=== PATIENT | male | born 1995 | race American Indian/Alaskan Native ===

== ENCOUNTER 2016-08-11 16:17 | Emergency (ER) | payer OTHER ==
[2016-08-11] MEDS ORDERED: BOOSTRIX IM ONE (20:10)
[2016-08-11] MEDS ORDERED: NACL 0.9% IR ONE (20:10)
[2016-08-11] MEDS ORDERED: XYLOCAINE 1% 20 mL INFILTRATI ONE (20:10)
--- NOTE | 2016-08-11 20:26 | Emergency Department Report ---
Upper Extremity - [facility] Chief Complaint: Extremity Injury, Upper Stated Complaint: RT MIDDLE FINGER LACERATION Time Seen by Provider: 08/11/16 20:04 Upper Extremity: Right Middle Finger Occurred When: Today Symptoms: Yes Pain with Movement, Yes Limited Range of Movement, Yes Swelling, Yes Laceration or Abrasion Other History: Patient comes in the ER today with complaints of right finger pain after shutting his finger in a door earlier today. Patient states this happened approximately 1:30 this afternoon. Patient states that he had to jerk his finger out of the door when it shot. Patient is unsure as to when his last tetanus shot was. ED Review of Systems ROS: Stated complaint: RT MIDDLE FINGER LACERATION Other details as noted in HPI Constitutional: denies: chills, fever Eyes: denies: eye pain, eye discharge, vision change ENT: denies: ear pain, throat pain Respiratory: denies: cough, shortness of breath, wheezing Cardiovascular: denies: chest pain, palpitations Endocrine: no symptoms reported Gastrointestinal: denies: abdominal pain, nausea, diarrhea Genitourinary: denies: urgency, dysuria Musculoskeletal: joint swelling, arthralgia. denies: back pain Skin: denies: rash, lesions Neurological: denies: headache, weakness, paresthesias Psychiatric: denies: anxiety, depression Hematological/Lymphatic: denies: easy bleeding, easy bruising ED Past Medical Hx - Past Medical History Previous Medical History?: No - Surgical History Past Surgical History?: No - Social History Smoking Status: Never Smoker Substance Use Type: None - Medications Home Medications: Home Medications Medication Instructions Recorded Confirmed Last Taken Type Acetaminophen/Codeine [Tylenol 1 tab PO Q6H PRN #20 tab 08/11/16 Unknown Rx /Codeine # 3 tab] Cephalexin [Keflex] 500 mg PO QID #40 capsule 08/11/16 Unknown Rx Upper Extremity Exam - Exam General: Vital signs noted. No distress. Alert and acting appropriately. Head and Torso: No HEENT Abnormality, No Neck Tenderness, No Chest/Lungs Abnormality, No Abdominal Tenderness, No Back Tenderness Shoulder Exam: Yes Normal Range of Motion in Shoulder, No Shoulder Tenderness, No Clavicle Tenderness, No Shoulder Deformity, No AC Joint Tenderness Arm Exam: No Arm/Humerus Tenderness, No Arm Deformity Elbow: No Elbow Tenderness, No Normal Range of Motion in Elbow, No Elbow Deformity Forearm: No Forearm Tenderness, No Forearm Deformity, No Pain with Pronation, No Pain with Supination Wrist: Yes Normal ROM in Wrist, No Wrist Tenderness, No Wrist Deformity, No Snuffbox Tenderness, No Pain with Axial Thumb Compression Hand: Yes Digit Tenderness (right third finger distal flap laceration through the bone.), No Hand Tenderness, No Hand Deformity, No Normal ROM in Digit(s), No Digit(s) Deformity, No Tendon Dysfunction CMS Exam: No Broken Skin, No Normal Distal Pulses, No Normal Capillary Refill, No Normal Distal Sensation ED Course Vital Signs 08/11/16 16:32 Temperature 98.8 F Pulse Rate 89 Respiratory 20 Rate Blood Pressure 112/78 - Laceration /Wound Repair Right Distal Finger Wound Location: upper extremity (right distal third finger) Wound's Depth, Shape: flap (multilayer flap laceration through the bone of distal right third finger) Wound Explored: no foreign body removed Irrigated w/ Saline (ccs): 60 Betadine Prep?: Yes Anesthesia: 1% Lidocaine Volume Anesthetic (ccs): 3 Wound Repaired With: sutures Suture Size/Type: 4:0, nylon Number of Sutures: 5 Layer Closure?: No Sterile Dressing Applied?: Yes Progress: Digital block performed on the right third finger. Patient tolerated procedure fairly well. There were no complications or difficulties. After good anesthesia was obtained, 5 intermittent sutures placed in and of right third finger with 3 sutures through the actual nail itself. Good closure obtained. Patient placed in finger splint for the fracture after wound closure and bandage. ED Medical Decision Making - Radiology Data Radiology results: image reviewed interpreted by me: Distal right third phalanx finger fracture - Medical Decision Making Patient is nontoxic and hemodynamically stable. Patient tolerated procedure of wound repair here in the ER. Patient placed in a splint for fracture. Patient given an update to his tetanus immunization here in the ER. I will continue patient on some outpatient antibiotics as well as outpatient orthopedics for further evaluation for open finger fracture. Patient is in agreement with treatment plan the patient is stable for discharge. Critical care attestation.: If time is entered above; I have spent that time in minutes in the direct care of this critically ill patient, excluding procedure time. ED Disposition Clinical Impression: Open finger fracture, Finger pain Disposition: TO HOME OR SELFCARE Is pt being admited?: No Does the pt Need Aspirin: No Condition: Good Instructions: Suture Care (ED), Laceration (ED), Finger Fracture (ED), Finger Laceration (ED) Prescriptions: Acetaminophen/Codeine [Tylenol /Codeine # 3 tab] 1 tab PO Q6H PRN #20 tab PRN Reason: Pain Cephalexin [Keflex] 500 mg PO QID #40 capsule Referrals: PRIMARY CARE, [Primary Care Provider] - 3-5 Days Time of Disposition: 22:18
--- NOTE | 2016-08-11 20:44 | XRay Report ---
FINAL REPORT EXAM: XR HAND 3 RT HISTORY: finger injury TECHNIQUE: Right hand three views PRIORS: None. FINDINGS: There acute avulsion type injury tip distal phalanx of the 3rd digit with fracture through the distal tuft. No radiopaque foreign bodies are observed. The joint spaces are within normal limits. No additional acute abnormality identified. IMPRESSION: Fracture through the tuft distal phalanx of the 3rd digit with laceration
[2016-08-11] MEDS ORDERED: NORCO 5/325 PO ONE (22:30)
[2016-08-11 22:48] VITALS: BP 109/77
== END 2016-08-11 22:47 | disposition home or self-care (01) ==
LOC: ED 16:17
DX: S62.632B Displaced fracture of distal phalanx of right middle finger, initial encounter for open fracture (principal); S61.212A Laceration without foreign body of right middle finger without damage to nail, initial encounter; W22.8XXA Striking against or struck by other objects, initial encounter; Y93.9 Activity, unspecified; Y92.9 Unspecified place or not applicable; Y99.9 Unspecified external cause status
CPT/HCPCS: 90471; 90715; 99283

== ENCOUNTER 2016-09-08 21:39 | Emergency (ER) | payer OTHER ==
[2016-09-08 22:29] VITALS: BP 103/69
[2016-09-08] MEDS ORDERED: MARCAINE 0.5% INFILTRATI NR (23:45)
[2016-09-08] MEDS ORDERED: TORADOL IM ONE (23:46)
--- NOTE | 2016-09-09 | Emergency Department Report ---
- General Chief Complaint: Wound/Laceration Stated Complaint: EYE INJURY Time Seen by Provider: 09/08/16 23:42 Source: patient Mode of arrival: Ambulatory Limitations: No Limitations - History of Present Illness Initial Comments: This is a 21-year-old male nontoxic, well nourished in appearance, no acute signs of distress that presents to the ED complaining of laceration to the left eyebrow. Patient stated he was playing basketball around 9 PM and was head butted by accidentally. Patient states bleeding is under control. Denies loss of consciousness. Denies other head trauma. Patient stated upon arrival he had a slight headache that is subsided now. Patient denies headache, blurry vision, chest pain, stiff neck, nausea, vomiting, eye pain, eye redness, visual changes, shortness of breath, nausea or vomiting. Patient last tetanus shot was last year when he had a laceration repair to the finger. Patient denies any allergies or significant past medical history. -: Gradual, This evening Location: other (left eyebrow) Place: outdoors Patient Tetanus UTD: Yes Context: accidental Associated Symptoms: none. denies: pain, loss of feeling/numbness, suspect foreign body present, unable to move injured part, weakness followed by dizziness, nausea/vomiting, fever - Related Data Previous Rx's Medication Instructions Recorded Last Taken Type Acetaminophen/Codeine [Tylenol 1 tab PO Q6H PRN #20 tab 08/11/16 Unknown Rx /Codeine # 3 tab] Cephalexin [Keflex] 500 mg PO QID #40 capsule 08/11/16 Unknown Rx Cephalexin [Keflex] 500 mg PO Q8HR 5 Days 09/09/16 Unknown Rx Ibuprofen [Motrin 600 MG tab] 600 mg PO Q8H PRN #30 tablet 09/09/16 Unknown Rx Allergies Allergy/AdvReac Type Severity Reaction Status Date / Time No Known Allergies Allergy Verified 08/11/16 16:32 ED Review of Systems ROS: Stated complaint: EYE INJURY Other details as noted in HPI Constitutional: denies: chills, fever Eyes: denies: eye pain, eye discharge, vision change ENT: denies: ear pain, throat pain Respiratory: denies: cough, shortness of breath, wheezing Cardiovascular: denies: chest pain, palpitations Endocrine: no symptoms reported Gastrointestinal: denies: abdominal pain, nausea, diarrhea Genitourinary: denies: urgency, dysuria Musculoskeletal: denies: back pain, joint swelling, arthralgia Skin: denies: rash, lesions Neurological: denies: headache, weakness, paresthesias Psychiatric: denies: anxiety, depression Hematological/Lymphatic: denies: easy bleeding, easy bruising ED Past Medical Hx - Past Medical History Previous Medical History?: No - Surgical History Past Surgical History?: No - Social History Smoking Status: Never Smoker Substance Use Type: Prescribed - Medications Home Medications: Home Medications Medication Instructions Recorded Confirmed Last Taken Type Acetaminophen/Codeine [Tylenol 1 tab PO Q6H PRN #20 tab 08/11/16 Unknown Rx /Codeine # 3 tab] Cephalexin [Keflex] 500 mg PO QID #40 capsule 08/11/16 Unknown Rx Cephalexin [Keflex] 500 mg PO Q8HR 5 Days 09/09/16 Unknown Rx Ibuprofen [Motrin 600 MG tab] 600 mg PO Q8H PRN #30 tablet 09/09/16 Unknown Rx ED Physical Exam - General Limitations: No Limitations General appearance: alert, in no apparent distress - Head Head exam: Present: atraumatic, normocephalic, normal inspection - Eye Eye exam: Present: normal appearance, PERRL, EOMI. Absent: scleral icterus, conjunctival injection, nystagmus, periorbital swelling, periorbital tenderness - ENT ENT exam: Present: normal exam, normal orophraynx, mucous membranes moist, TM's normal bilaterally, normal external ear exam - Neck Neck exam: Present: normal inspection, full ROM. Absent: tenderness, meningismus, lymphadenopathy, thyromegaly - Respiratory Respiratory exam: Present: normal lung sounds bilaterally. Absent: respiratory distress, wheezes, rales, rhonchi, stridor, chest wall tenderness, accessory muscle use, decreased breath sounds, prolonged expiratory - Cardiovascular Cardiovascular Exam: Present: regular rate, normal rhythm, normal heart sounds. Absent: bradycardia, tachycardia, irregular rhythm, systolic murmur, diastolic murmur, rubs, gallop - GI/Abdominal GI/Abdominal exam: Present: soft, normal bowel sounds. Absent: distended, tenderness, guarding, rebound, rigid, diminished bowel sounds - Rectal Rectal exam: Present: deferred - Extremities Exam Extremities exam: Present: normal inspection, full ROM, normal capillary refill. Absent: tenderness, pedal edema, joint swelling, calf tenderness - Back Exam Back exam: Present: normal inspection, full ROM. Absent: tenderness, CVA tenderness (R), CVA tenderness (L), muscle spasm, paraspinal tenderness, vertebral tenderness, rash noted - Neurological Exam Neurological exam: Present: alert, oriented X3, CN II-XII intact, normal gait, reflexes normal - Expanded Neurological Exam Expanded Patient oriented to: Present: person, place, time Speech: Present: fluid speech (normal speech) Cranial nerves: EOM's Intact: Normal, Gag Reflex: Normal, Tongue Deviation: Normal, Nystagmus: Normal, Facial Sensation: Normal, Facial Palsy with Forehead Movement: Normal, Facial Palsy without Forehead Movement: Normal Cerebellar function: Finger to Nose: Normal, Heel to Jenkins: Normal, Romberg: Normal Upper motor neuron: Nick Neglect: Normal, Pronator Drift: Normal, Babinski Sign : Normal, Sensory Extinction: Normal Sensory exam: Upper Extremity Light Touch: Normal, Upper Extremity Pin Prick: Normal, Upper Extremity Temperature: Normal, UE 2 Point Discrimination: Normal, Lower Extremity Light Touch: Normal, Lower Extremity Pin Prick: Normal, Lower Extremity Temperature: Normal, LE 2 Point Discrimination: Normal Motor strength exam: RUE: 5, LUE: 5, RLE: 5, LLE: 5 DTR: bicep (R): 2+, bicep (L): 2+, tricep (R): 2+, tricep (L): 2+, knee (R): 2+ , knee (L): 2+, ankle (R): 2+, ankle (L): 2+ Best Eye Response (Lisa): (4) open spontaneously Best Motor Response (Lisa): (6) obeys commands Best Verbal Response ([place]): (5) oriented Lisa Total: 15 - Psychiatric Psychiatric exam: Present: normal affect, normal mood - Skin Skin exam: Present: warm, dry, intact, normal color. Absent: rash - Other Other exam information: 1 cm superficial linear laceration to the left eyebrow. No pus or drainage noted. No swelling. Patient denies any pain. ED Course Vital Signs 09/08/16 22:25 Temperature 99 F Pulse Rate 78 Respiratory 18 Rate Blood Pressure 103/69 Blood Pressure 106/69 [Right] O2 Sat by Pulse 98 Oximetry - Reevaluation(s) Reevaluation #1: 09/08/16 23:57 Patient is able speak in full sentences but no signs of distress noted. - Laceration /Wound Repair Left Face Wound Location: face (left eyebrow) Wound Length (cm): 2 Wound's Depth, Shape: superficial Wound Explored: clean Irrigated w/ Saline (ccs): 20 Betadine Prep?: Yes Anesthesia: 0.5% Sensorcaine (plain) Volume Anesthetic (ccs): 3 Wound Debrided: minimal Wound Repaired With: sutures Suture Size/Type: 5:0 Number of Sutures: 5 Layer Closure?: No Sterile Dressing Applied?: Yes Progress: Under sterile field, I used Betadine to clean the area. I then used 10 mL of normal saline to flush the area. I then used 0.5% Marcaine plain with 25-gauge 5/8 hypo-and injected a total volume of 3 mL. I then used a 5-0 Prolene to suture the laceration. Number of stitches 5. I then applied a sterile 4 x 4 with tape. Minimal bleeding noted but is under control. Patient tolerated procedure well with no signs of distress. ED Medical Decision Making - Medical Decision Making ED course; this is a [age] male that presents with 1 inch laceration to the left eyebrow. 1- patient was examined by myself. Laceration has been repaired and patient was instructed to return in 7 days for suture removal. 2- patient was discharged with Keflex and was instructed to finish full course of antibiotic. 3- patient was also instructed to follow-up with her primary care doctor in 3-5 days or if symptoms such as fever, chills, pus, drainage, swelling, stiffness, headache short of breath or chest pain return to emergency room as soon as possible. 4- At time time of discharge, the patient does not seem toxic or ill in appearance. No acute signs of distress noted. Patient agrees to discharge treatment plan of care. No further questions noted by the patient. Critical care attestation.: If time is entered above; I have spent that time in minutes in the direct care of this critically ill patient, excluding procedure time. ED Disposition Clinical Impression: Laceration Disposition: DC-01 TO HOME OR SELFCARE Is pt being admited?: No Does the pt Need Aspirin: No Condition: Stable Instructions: Cephalexin (By mouth), Ibuprofen (By mouth), Suture Care (ED), Laceration (ED) Additional Instructions: follow-up with your primary care doctor in 3-5 days or if symptoms such as fever, chills, pus, drainage, swelling, stiffness, headache short of breath or chest pain return to emergency room as soon as possible. Finish full course of antibiotics and was prescribed today. Prescriptions: Cephalexin [Keflex] 500 mg PO Q8HR 5 Days Ibuprofen [Motrin 600 MG tab] 600 mg PO Q8H PRN #30 tablet PRN Reason: Pain Referrals: PRIMARY CARE, [Primary Care Provider] - 3-5 Days ERIKA HELLER MD [Staff Physician] - 3-5 Days [facility] [Outside] - 3-5 Days [facility] [place] [facility] [place]] - 3-5 Days Forms: Work/School Release Form(ED)
== END 2016-09-09 01:40 | disposition home or self-care (01) ==
LOC: ED 21:39
DX: S01.112A Laceration without foreign body of left eyelid and periocular area, initial encounter (principal); W21.05XA Struck by basketball, initial encounter; Y93.9 Activity, unspecified; Y92.9 Unspecified place or not applicable; Y99.9 Unspecified external cause status
CPT/HCPCS: 12011; 99282; J1885

== ENCOUNTER 2016-09-12 22:56 | Emergency (ER) | payer OTHER ==
--- NOTE | 2016-09-12 23:38 | Emergency Department Report ---
HPI - General Time Seen by Provider: 09/12/16 23:23 - HPI HPI: The patient is a 20-year-old male who presents for evaluation of mental health. The patient reports 1 day of severe and constant sadness, improved with rest. He reported associated suicidal ideation as well. The patient denies fever, headache, unexplained weight loss or weight gain, heat or cold intolerance, skin , hair, or nail changes, neuro deficits, homicidal ideations, or auditory or visual hallucinations. ED Past Medical Hx - Social History Smoking Status: Never Smoker Substance Use Type: Prescribed - Medications Home Medications: Home Medications Medication Instructions Recorded Confirmed Last Taken Type Acetaminophen/Codeine [Tylenol 1 tab PO Q6H PRN #20 tab 08/11/16 Unknown Rx /Codeine # 3 tab] Cephalexin [Keflex] 500 mg PO QID #40 capsule 08/11/16 Unknown Rx Cephalexin [Keflex] 500 mg PO Q8HR 5 Days 09/09/16 Unknown Rx Ibuprofen [Motrin 600 MG tab] 600 mg PO Q8H PRN #30 tablet 09/09/16 Unknown Rx ED Review of Systems ROS: Stated complaint: MH EVAL/SUICIDAL THREATS Other details as noted in HPI Constitutional: denies: fever ENT: denies: throat or neck pain Respiratory: denies: cough, shortness of breath Cardiovascular: denies: chest pain Endocrine: denies unexplained weight loss or gain Gastrointestinal: denies: abdominal pain, nausea Genitourinary: denies: dysuria Musculoskeletal: denies: leg swelling Skin: denies: rash Neurological: denies: headache Hematological/Lymphatic: denies: easy bleeding or easy bruising Psych: reports sadness and hopelessness Physical Exam - Physical Exam Vital Signs: Blood pressure 117/64, heart rate 84, respiratory rate 18, temperature 98.7, oxygen saturation 99% Physical Exam: General: well-nourished, well-developed, no acute distress Head: Normocephalic, atraumatic Eyes: normal sclera ENT: Mucous membranes are pink and moist Neck: trachea midline, neck supple, No neck stiffness, no cervical adenopathy Respiratory: Breath sounds equal bilaterally, no wheezing, rales, or rhonchi Cardio: S1 and S2 present, no murmurs, rubs, gallops, capillary refill is brisk Abdomen: Normoactive bowel sounds, soft abdomen, no rigidity, no guarding or rebound tenderness Musc: No pitting edema Skin: No rash Neuro: no facial drooping, normal speech Psych: Flat affect, poor insight, depressed mood, positive suicidal ideation ED Medical Decision Making - Lab Data Result diagrams: 09/13/16 00:09 09/13/16 00:09 - Medical Decision Making The patient was seen and examined by myself. The patient is placed on a electrotherapist and continuous pulse ox. On initial evaluation, the patient was found to be in no distress. Labs are obtained. Lab results are grossly unremarkable. The patient is medically clear. Mental health is consulted. Mental health evaluates the patient and agrees that the patient is at risk of harm to self. A 1013 is completed. The patient will be admitted to a psychiatric facility once bed placement is obtained. Critical care attestation.: If time is entered above; I have spent that time in minutes in the direct care of this critically ill patient, excluding procedure time. ED Disposition Clinical Impression: Suicidal ideation Depression Qualifiers: Depression Type: major depressive disorder Major depression recurrence: single episode Active/Remission status: currently active Major depression episode severity: severe Psychotic features: without psychotic features Qualified Code(s ): F32.2 - Major depressive disorder, single episode, severe without psychotic features Disposition: DC/TX-65 PSY HOSP/PSY UNIT Is pt being admited?: No Does the pt Need Aspirin: No Condition: Serious Time of Disposition: 23:47
[2016-09-13 00:58] LABS: Anion Gap 20 mmol/L; BUN/Creatinine Ratio 6.36; Blood Urea Nitrogen 7 mg/dL (9-20); Calcium 9.3 mg/dL (8.4-10.2); Carbon Dioxide 24 mmol/L (22-30); Chloride 101.6 mmol/L (98-107); Glucose 97 mg/dL (75-100); Sodium 142 mmol/L (137-145)
[2016-09-13 01:02] LABS: Basophils % (Auto) 0.4 % (0.0-1.8); Eosinophils % (Auto) 0.6 % (0.0-4.3); Hematocrit 45.3 % (35.5-45.6); Hemoglobin 14.9 gm/dl (11.8-15.2); Mean Corpuscular HGB Conc 33 % (32-34); Mean Corpuscular Hemoglobin 28 pg (28-32); Mean Corpuscular Volume 84 fl (84-94); Platelet Count 255 K/mm3 (140-440); Red Blood Count 5.37 M/mm3 (3.65-5.03); White Blood Count 5.5 K/mm3 (4.5-11.0)
[2016-09-13 01:05] LABS: Urine Drugs of Abuse Note Disclamer
[2016-09-13 01:28] LABS: Bilirubin,Urine NEG (Negative); Blood,Urine NEG (Negative); Ketones,Urine NEG (Negative); Leukocyte Esterase,Urine SM (Negative); Mucus,Urine FEW /HPF; Nitrite,Urine NEG (Negative)
[2016-09-13] MEDS ORDERED: ROCEPHIN IM ONE (08:01)
[2016-09-13] MEDS ORDERED: ZITHROMAX PO ONE (08:01)
[2016-09-13] MEDS ORDERED: XYLOCAINE 1% MPF 5 mL INFILTRATI ONE (08:01)
--- NOTE | 2016-09-13 08:02 | Emergency Department Report ---
Blank Doc - Documentation Documentation: Nurse brought to my attention the patient's UA had signs of infection. Patient has rater than 182 WBC cells. Given age of 20yo Rocephin and azithromycin order to cover for STD related urethritis. Urine gonorrhea chlamydia culture test ordered.
--- NOTE | 2016-09-13 14:02 | Consultation ---
History of Present Illness - Reason for Consult Consult date: 09/13/16 Reason for consult: Mental Health Evaluation Requesting physician: SUAD THOMPSON - Chief Complaint Chief complaint: "I just made a gesture" - History of Present Psychiatric Illness The patient is a 20-year-old male who presents for evaluation of mental health. Today patient is calm and cooperative during the assessment. He stated he got into an argument with his girlfriend which prompted him to make a statement about being suicidal. Prior to this episode, patient had moved out from his mother and now live with a friend. He stated that his mother want him to move back home, something he doesn't want to do. Per the argument with his girlfriend , he called his mother and told her what happened and she asked him to move back home. Per the patient, he stated that he wanted to kill himself while talking with his mother. He stated that he made that statement to his mother so she can stop asking him to move back home. Per his mother Ms Maura Treviño, she confirmed that her son did tell her he wanted to kill himself. She denies a mental health hx for her son. Currently, patient continue to state that he was never suicidal when he made that statement. He denies recreational drug use and alcohol consumption. Medications and Allergies Allergies Allergy/AdvReac Type Severity Reaction Status Date / Time No Known Allergies Allergy Verified 08/11/16 16:32 Home Medications Medication Instructions Recorded Confirmed Last Taken Type Acetaminophen/Codeine [Tylenol 1 tab PO Q6H PRN #20 tab 08/11/16 Unknown Rx /Codeine # 3 tab] Cephalexin [Keflex] 500 mg PO QID #40 capsule 08/11/16 Unknown Rx Cephalexin [Keflex] 500 mg PO Q8HR 5 Days 09/09/16 Unknown Rx Ibuprofen [Motrin 600 MG tab] 600 mg PO Q8H PRN #30 tablet 09/09/16 Unknown Rx Past psychiatric history - Past Medical History Past Medical History: No medical history Past Surgical History: No surgical history - past Psychiatric treatment and history psychiatric treatment history: Denies a psy hx. Mother - Depression. - Social History Social history: Lives alone (11th grade education) Mental Status Exam - Vital signs Last Vital Signs Temp 98.6 F 09/13/16 08:47 Pulse 53 L 09/13/16 08:47 Resp 18 08/01/17 08:47 BP 117/64 09/13/16 01:00 Pulse Ox 98 09/13/16 08:47 - Exam Narrative exam: ROS: (-) depression MSE: Appearance: calm, cooperative Behavior: regular eye contact Speech: regular rate and tone Mood: "okay" Affect: congruent to mood Thought Process: circumstantial Thought Content: denies SI/HI's and AVH's Motor Activity: ambulatory Cognition: A/Ox 3 Insight: fair Judgment: fair Results Result Diagrams: 09/13/16 00:09 09/13/16 00:09 Abnormal lab results 09/13/16 09/13/16 09/13/16 Range/Units 00:09 00:09 00:45 RBC 5.37 H (3.65-5.03) M/mm3 [place] % (Auto) 8.9 H (0.0-7.3) % BUN 7 L (9-20) mg/dL Urine pH 8.0 H (5.0-7.0) Urine WBC (Auto) 102.0 H (0.0-6.0) /HPF All other labs normal. Assessment and Plan Assessment and plan: Impression: Acute Stress Reaction. Today patient is calm and cooperative during the assessment. Patient denies SI's. DDx: R/O Mood DO Recommendation/Plan: Evaluate 1013 in 24 hours to determine proper dispo. Discussed generalized coping skills with patient.
--- NOTE | 2016-09-14 15:41 | Progress Note ---
Subjective - Reason for Consult Consult date: 09/14/16 Reason for consult: follow up - Chief Complaint Chief complaint: "I never said I was going to kill myself." 20 year old male seen for psychiatric follow up in the ER. He denies suicidal ideation or depression. He denies psychotic symptoms. His mother reports he texted her and his father and said he was going to kill himself at 10. She describes him as immature and frequently lies. She states about one month ago, he called her and told her he woke up and angry and wanted to kill himself. She states he mentioned his fear of being locked up in a hospital if he said how he felt. She stayed with him that day and did not have any further cause for concerns until the event leading to this ER visit. Mental Status Exam - Vital signs Last Vital Signs Temp 98.6 F 09/14/16 07:47 Pulse 65 09/14/16 07:47 Resp 18 09/14/16 07:47 BP 112/71 09/14/16 07:47 Pulse Ox 100 09/14/16 07:47 Assessment and Plan Narrative exam: ROS: (-) depression MSE: Appearance: calm, cooperative Behavior: regular eye contact Speech: regular rate and tone Mood: "okay" Affect: congruent to mood Thought Process: circumstantial Thought Content: denies SI/HI's and AVH's Motor Activity: ambulatory Cognition: A/Ox 3 Insight: fair Judgment: fair Assessment and plan: Impression: Acute Stress Reaction. Today patient is calm and cooperative during the assessment. Patient denies SI's but his report of the events leadin to the hospital stay is incocnsistent with his mother's reports. She also expressed that he texted her his intent to harm himself and lied about it. She states he lies often and wants him to live at home since he is immature. DDx: R/O Mood DO Recommendation/Plan: Evaluate 1013 in 24 hours to determine proper dispo. Discussed generalized coping skills with patient. His mother is willing to pick him up if he is discharged from the ER.
[2016-09-14 22:31] VITALS: BP 106/61
--- NOTE | 2016-09-15 10:51 | Progress Note ---
Subjective - Reason for Consult Consult date: 09/15/16 Reason for consult: Psychiatry Follow-up - Chief Complaint Chief complaint: "I don't want to kill myself" 20 year old male seen for psychiatric follow up in the ER. Today patient is calm and cooperative during assessment. He is adamant about not wanting to kill himself. He stated that he should have handled the situation better. He stated since his admission, he thought about how to make his life better. He stated that he would like to get his GED so he can get a better job and possible go to college. He denies SI/HI's, AVH's, and depression symptoms. Patient is willing to move back in with his mother once discharged. Mental Status Exam - Vital signs Last Vital Signs Temp 98.6 F 09/14/16 07:47 Pulse 62 09/14/16 22:30 Resp 17 09/15/16 10:04 BP 106/61 09/14/16 22:30 Pulse Ox 99 09/15/16 10:04 - Exam Narrative exam: MSE: Appearance: calm, cooperative Behavior: regular eye contact Speech: regular rate and tone Mood: "I'm well" Affect: congruent to mood Thought Process: circumstantial Thought Content: denies SI/HI's and AVH's Motor Activity: ambulatory Cognition: A/Ox 3 Insight: fair Judgment: fair Assessment and Plan Impression: Acute Stress Reaction. Today patient is calm and cooperative during the assessment. Patient denies SI's. Patient had support from his mother Maura Treviño. She stated that he can move in with her once he is discharged. Patient is no threat to self. Recommendation/Plan: Rescind 1013. Patient given outpatient psy services for the [facility] (therapy). Discussed generalized coping skills with patient.
== END 2016-09-15 19:02 ==
LOC: EEVIPCON 22:56 → ED 22:56
DX: F32.2 Major depressive disorder, single episode, severe without psychotic features (principal); R45.851 Suicidal ideations
CPT/HCPCS: 36415; 80048; 80307; 81001; 85025; 87591; 96372; 99285; G0480; J0696; 80320

== ENCOUNTER 2016-09-26 13:00 | Emergency (ER) | payer OTHER ==
[2016-09-26 13:15] VITALS: BP 103/70
--- NOTE | 2016-09-26 13:43 | Emergency Department Report ---
Suture/Staple Removal - HPI Chief Complaint: Laceration/Recheck/Suture Stated Complaint: SUTURE REMOVAL Time Seen by Provider: 09/26/16 13:38 When Sutures or Frederic Placed: R middle finger 1 month, L eyebrow 1 week Wound Location: R middle finger, L eye brow ED Review of Systems ROS: Stated complaint: SUTURE REMOVAL Other details as noted in HPI Comment: All other systems reviewed and negative Constitutional: denies: chills, fever Skin: as per HPI (5 stitches to R middle finger tip. left eye brow with 5 stitches ), other (denies drainage or redness ). denies: change in color ED Past Medical Hx - Past Medical History Previous Medical History?: No - Surgical History Past Surgical History?: No - Social History Smoking Status: Never Smoker Substance Use Type: Prescribed - Medications Home Medications: Home Medications Medication Instructions Recorded Confirmed Last Taken Type Ibuprofen [Motrin] 600 mg PO Q8H PRN #15 tablet 09/26/16 Unknown Rx Sulfamethoxazole/Trimethoprim 1 each PO BID #14 tablet 09/26/16 Unknown Rx [Bactrim DS TAB] Suture Removal Exam - Exam General: Vital signs noted. No distress. Alert and acting appropriately. Wound: Yes Pathologic Erythema (r middle finger ), Yes Tenderness (r middle finger ), Yes Drainage (r middle finger ), Yes Pus (r middle finger ), No Wound Dehiscence Other Systems: All other systems reviewed and are unremarkable. ED Course Vital Signs 09/26/16 13:13 Temperature 98.2 F Pulse Rate 78 Respiratory 16 Rate Blood Pressure 103/70 O2 Sat by Pulse 100 Oximetry - Reevaluation(s) Reevaluation #1: 09/26/16 13:52 five sutures removed from R middle finger, + drainage, + tenderness. fiver sutures removed from L eye brow, wound remains intact. no signs of infection - Pulse Oximetry Interpretation Digit-Finger Initial Pulse Oximetry Readin Actions Taken: none ED Recheck MDM - Differential Diagnosis Suture/Staple Removal Critical Care Time: No Critical care attestation.: If time is entered above; I have spent that time in minutes in the direct care of this critically ill patient, excluding procedure time. ED Disposition Clinical Impression: Encounter for removal of sutures Disposition: DC-01 TO HOME OR SELFCARE Is pt being admited?: No Does the pt Need Aspirin: No Condition: Stable Instructions: Suture Removal (ED), Abscess (ED), Subungual Hematoma (ED) Additional Instructions: warm compresses to R middle finger at least 4 times a day Return to Ed in 2 days for recheck or follow up with PCP Return to ED if your finger swells, you can not move it, you have fever or worsening pain Prescriptions: Ibuprofen [Motrin] 600 mg PO Q8H PRN #15 tablet PRN Reason: Pain Sulfamethoxazole/Trimethoprim [Bactrim DS TAB] 1 each PO BID #14 tablet Referrals: ALESSIA FRIAS MD [Staff Physician] - 3-5 Days [facility] [Outside] - 3-5 Days Time of Disposition: 13:53
[2016-09-26] MEDS ORDERED: MORPHINE ONE (13:58)
== END 2016-09-26 14:06 | disposition home or self-care (01) ==
LOC: ED 13:00
DX: Z48.02 Encounter for removal of sutures (principal)
CPT/HCPCS: J2270

== ENCOUNTER 2019-03-03 17:51 | Emergency (ER) | payer SELFPAY ==
[2019-03-03 18:23] VITALS: BP 96/77
--- NOTE | 2019-03-03 18:23 | Emergency Department Report ---
ED Male HPI - General Chief complaint: Urogenital-Male Stated complaint: BLEEDING AND BURNING FROM PENIS Time Seen by Provider: 03/03/19 18:18 Source: patient Mode of arrival: Ambulatory Limitations: No Limitations - History of Present Illness Initial comments: This is a 23-year-old male nontoxic, well in appearance with no signs of distress presents to the ED for dysuria and some discharge x4 days. Denies any testicular pain, or swelling. Denies any penile ulcers or rash. Patient denies any urinary symptoms. Patient denies any fever, chills, headache, nausea, vomiting, chest pain or shortness of breathe. Denies any other symptoms or complaints. Denies any allergies or PMH. MD Complaint: penile discharge -: days(s) (4) Location: penis Radiation: none Severity: mild Severity scale (0 -10): 8 Quality: burning Consistency: intermittent Improves with: none Worsens with: urination discharge, dysuria. denies: swelling, mass, rash, urinary retention, blood in urine, fever, nausea/vomiting, incontinence - Related Data Previous Rx's Medication Instructions Recorded Last Taken Type Ibuprofen [Motrin] 600 mg PO Q8H PRN #15 tablet 09/26/16 Unknown Rx Sulfamethoxazole/Trimethoprim 1 each PO BID #14 tablet 09/26/16 Unknown Rx [Bactrim DS TAB] Allergies Allergy/AdvReac Type Severity Reaction Status Date / Time No Known Allergies Allergy Verified 08/11/16 16:32 ED Review of Systems ROS: Stated complaint: BLEEDING AND BURNING FROM PENIS Other details as noted in HPI Constitutional: denies: chills, fever Eyes: denies: eye pain, eye discharge, vision change ENT: denies: ear pain, throat pain Respiratory: denies: cough, shortness of breath, wheezing Cardiovascular: denies: chest pain, palpitations Endocrine: no symptoms reported Gastrointestinal: denies: abdominal pain, nausea, diarrhea Genitourinary: dysuria, discharge. denies: urgency, frequency, hematuria Musculoskeletal: denies: back pain, joint swelling, arthralgia Skin: denies: rash, lesions Neurological: denies: headache, weakness, paresthesias Psychiatric: denies: anxiety, depression Hematological/Lymphatic: denies: easy bleeding, easy bruising ED Past Medical Hx - Social History Smoking Status: Never Smoker Substance Use Type: Prescribed - Medications Home Medications: Home Medications Medication Instructions Recorded Confirmed Last Taken Type Ibuprofen [Motrin] 600 mg PO Q8H PRN #15 tablet 09/26/16 Unknown Rx Sulfamethoxazole/Trimethoprim 1 each PO BID #14 tablet 09/26/16 Unknown Rx [Bactrim DS TAB] ED Physical Exam - General Limitations: No Limitations General appearance: alert, in no apparent distress - Head Head exam: Present: atraumatic, normocephalic - Neck Neck exam: Present: normal inspection, full ROM - GI/Abdominal GI/Abdominal exam: Present: soft, normal bowel sounds. Absent: distended, tenderness, guarding, rebound, rigid, diminished bowel sounds - exam: Present: urethral discharge. Absent: testicular tenderness, scrotal swelling, vertical testicular lie, circumcision External exam: Present: normal external exam. Absent: erythema, swelling, lesions, lacerations, ecchymosis, bleeding - Extremities Exam Extremities exam: Present: normal inspection, full ROM - Back Exam Back exam: Present: normal inspection, full ROM. Absent: tenderness, CVA tenderness (R), CVA tenderness (L), muscle spasm, paraspinal tenderness, vertebral tenderness, rash noted - Neurological Exam Neurological exam: Present: alert, oriented X3, normal gait - Psychiatric Psychiatric exam: Present: normal affect, normal mood - Skin Skin exam: Present: warm, dry, intact, normal color. Absent: rash ED Course Vital Signs 03/03/19 18:21 Temperature 98.3 F Pulse Rate 108 H Respiratory 18 Rate Blood Pressure 96/77 O2 Sat by Pulse 100 Oximetry - Reevaluation(s) Reevaluation #1: 03/03/19 18:21 Patient is speaking in full sentences with no signs of distress noted. ED Medical Decision Making - Medical Decision Making This is a 23-year-old male that presents with possible STD. GC, UA, and urine culture ordered but patient never gave urine. Patient has been called several times with no response. Patient eloped. Critical care attestation.: If time is entered above; I have spent that time in minutes in the direct care of this critically ill patient, excluding procedure time. ED Disposition Clinical Impression: Possible exposure to STD Disposition: ELOPED Is pt being admited?: No Condition: Stable
== END 2019-03-03 20:50 | disposition left against medical advice (07) ==
LOC: ED 17:51
DX: R30.0 Dysuria (principal); R36.9 Urethral discharge, unspecified; Z20.2 Contact with and (suspected) exposure to infections with a predominantly sexual mode of transmission
CPT/HCPCS: 99281

== ENCOUNTER 2019-03-06 07:39 | Emergency (ER) | payer SELFPAY ==
--- NOTE | 2019-03-06 10:15 | Emergency Department Report ---
ED Male HPI - General Chief complaint: Urogenital-Male Stated complaint: BLEEDING/SWOLLEN BURNING FROM PENIS Time Seen by Provider: 03/06/19 10:14 Source: patient Mode of arrival: Ambulatory Limitations: No Limitations - History of Present Illness Initial comments: 23 yo with green penile dc. no testicular pain. no lesions. no fever/chills. started yesterday. numerous sexual partners- female. MD Complaint: penile discharge -: Sudden, days(s) Consistency: constant - Related Data Sexually active: Yes Previous Rx's Medication Instructions Recorded Last Taken Type Ibuprofen [Motrin] 600 mg PO Q8H PRN #15 tablet 09/26/16 Unknown Rx Sulfamethoxazole/Trimethoprim 1 each PO BID #14 tablet 09/26/16 Unknown Rx [Bactrim DS TAB] Doxycycline Monohydrate 150 mg PO BID #20 capsule 03/06/19 Unknown Rx [Doxycycline Monohydrate CAP] Allergies Allergy/AdvReac Type Severity Reaction Status Date / Time No Known Allergies Allergy Verified 08/11/16 16:32 ED Review of Systems ROS: Stated complaint: BLEEDING/SWOLLEN BURNING FROM PENIS Other details as noted in HPI Comment: All other systems reviewed and negative ED Past Medical Hx - Past Medical History Previous Medical History?: Yes Additional medical history: std - Surgical History Past Surgical History?: No - Social History Smoking Status: Never Smoker Substance Use Type: None - Medications Home Medications: Home Medications Medication Instructions Recorded Confirmed Last Taken Type Ibuprofen [Motrin] 600 mg PO Q8H PRN #15 tablet 09/26/16 Unknown Rx Sulfamethoxazole/Trimethoprim 1 each PO BID #14 tablet 09/26/16 Unknown Rx [Bactrim DS TAB] Doxycycline Monohydrate 150 mg PO BID #20 capsule 03/06/19 Unknown Rx [Doxycycline Monohydrate CAP] ED Physical Exam - General Limitations: No Limitations General appearance: alert, in no apparent distress - Head Head exam: Present: atraumatic, normocephalic - Eye Eye exam: Present: normal appearance - ENT ENT exam: Present: mucous membranes moist - Neck Neck exam: Present: normal inspection - Respiratory Respiratory exam: Present: normal lung sounds bilaterally. Absent: respiratory distress - Cardiovascular Cardiovascular Exam: Present: regular rate, normal rhythm. Absent: systolic murmur, diastolic murmur, rubs, gallop - GI/Abdominal GI/Abdominal exam: Present: soft, normal bowel sounds - Rectal Rectal exam: Present: deferred - Extremities Exam Extremities exam: Present: normal inspection - Back Exam Back exam: Present: normal inspection - Neurological Exam Neurological exam: Present: alert, oriented X3 - Psychiatric Psychiatric exam: Present: normal affect, normal mood - Skin Skin exam: Present: warm, dry, intact, normal color. Absent: rash ED Course Vital Signs 03/06/19 03/06/19 07:48 07:49 Temperature 98.6 F 98.6 F Pulse Rate 95 H Respiratory 16 Rate Blood Pressure 121/70 O2 Sat by Pulse 98 Oximetry ED Medical Decision Making - Medical Decision Making urine sent empiric treatment educated on safe sex Vital Signs 03/06/19 03/06/19 07:48 07:49 Temperature 98.6 F 98.6 F Pulse Rate 95 H Respiratory 16 Rate Blood Pressure 121/70 O2 Sat by Pulse 98 Oximetry - Differential Diagnosis sti Critical care attestation.: If time is entered above; I have spent that time in minutes in the direct care of this critically ill patient, excluding procedure time. ED Disposition Clinical Impression: STD (male) Disposition: - TO HOME OR SELFCARE Is pt being admited?: No Does the pt Need Aspirin: No Condition: Stable Instructions: Sexually Transmitted Diseases (ED), Safe Sex (ED) Additional Instructions: safe sex meds as ordered today FOLLOW UP WITH DR SHIKHA HALLMAN Prescriptions: Doxycycline Monohydrate [Doxycycline Monohydrate CAP] 150 mg PO BID #20 capsule Referrals: HILDA TRIVEDI MD [Staff Physician] - 3-5 Days Time of Disposition: 10:31
[2019-03-06] MEDS ORDERED: AZITHROMYCIN 250 MG TAB PO ONE (10:27)
[2019-03-06] MEDS ORDERED: LIDOCAINE-MPF (1%) 10 MG/1 ML VIAL 5 ML INFILTRATI ONE (10:27)
[2019-03-06] MEDS ORDERED: IBUPROFEN 800 MG TAB PO ONE (10:28)
[2019-03-06] MEDS ORDERED: ONDANSETRON 4 MG ODT TAB PO ONE (10:28)
[2019-03-06] MEDS ORDERED: metroNIDAZOLE 500 MG TAB PO ONE (10:28)
[2019-03-06 11:58] VITALS: BP 124/72
== END 2019-03-06 11:57 | disposition home or self-care (01) ==
LOC: ED 07:39
DX: A64 Unspecified sexually transmitted disease (principal); Z79.899 Other long term (current) drug therapy
CPT/HCPCS: 96372; 99282; J0696; Q0162

== ENCOUNTER 2020-07-10 02:23 | Emergency (ER) | payer SELFPAY ==
[2020-07-10 04:05] LABS: Bilirubin,Urine NEG (Negative); Blood,Urine NEG (Negative); Color,Urine Yellow (Yellow); Mucus,Urine 1+ /HPF
[2020-07-10 04:08] LABS: WBC,Urine > 182.0 /HPF (0.0-6.0)
== END 2020-07-10 07:56 | disposition left against medical advice (07) ==
LOC: ED 02:23
DX: R30.9 Painful micturition, unspecified (principal); Z53.21 Procedure and treatment not carried out due to patient leaving prior to being seen by health care provider
CPT/HCPCS: 81001